=== PATIENT | female | born 1965 | race American Indian/Alaskan Native ===

== ENCOUNTER 2018-09-06 08:15 | Outpatient (CLI) | payer BC ==
[2018-09-06 08:44] LABS: Hematocrit 44.3 % (30.3-42.9); Hemoglobin 14.9 gm/dl (10.1-14.3); Mean Corpuscular HGB Conc 34 % (30-34); Mean Corpuscular Volume 89 fl (79-97); Platelet Count 288 K/mm3 (140-440); Red Cell Distribution Width 13.9 % (13.2-15.2)
[2018-09-06 09:14] LABS: Erythrocyte Sedimentation Rate 4 mm/Hr (0-20)
[2018-09-06 09:43] LABS: Alanine Aminotransferase 9 units/L (7-56); Albumin 4.3 g/dL (3.9-5); BUN/Creatinine Ratio 10; Blood Urea Nitrogen 9 mg/dL (7-17); Calcium 9.3 mg/dL (8.4-10.2); Hemolysis Index 16
== END 2018-09-06 08:16 | disposition home or self-care (01) ==
LOC: LAB 08:15
PROVIDERS: ATTEND Specialist
DX: G44.209 Tension-type headache, unspecified, not intractable (principal)
CPT/HCPCS: 36415; 80053; 85027; 85652